=== PATIENT | female | born 1960 | race Caucasian/White ===

== ENCOUNTER 2023-03-07 20:45 | Emergency (ER) | payer OTHER ==
[2023-03-07] MEDS ORDERED: Ipratropium/Albuterol 3 ML NEB ONE (21:19)
[2023-03-07] MEDS ORDERED: Azithromycin 500 MG VIAL ONE (21:23)
[2023-03-07] MEDS ORDERED: cefTRIAXone (ROCEPHIN) 2 GM VIAL ONE (21:23)
[2023-03-07] MEDS ORDERED: Magnesium 2 GM/50 ML BAG (IN WATER) ONE (21:23)
[2023-03-07] MEDS ORDERED: methylPREDNISolone Sod Succ/PF 125 MG/2 ML VIAL ONE (21:23)
[2023-03-07 22:15] LABS: Base Excess (BEa) 1.1 mEq/L (-2.0 to +3.0); CO2 Tension 42.8 mmHg (35.0-45.0); Calcium, Ionized (arterial) 1.07 mmol/L (1.12-1.30); Carboxyhemoglobin (COHb) 7.7 gm% (0.0-3.0); Hematocrit-ABG 29 % (36.0-47.0); Hemoglobin (Hb) 9.8 g/dL (12.0-16.0); O2 Tension (PaO2), arterial 86.2 mmHg (> 80.0); Potassium - ABG Lab 3.95 mmol/L (3.70-5.30); Puncture Site LRA; RapidComm Collect By CP.BR1; pH, Arterial 7.402 (7.35-7.45)
[2023-03-07 23:02] LABS: #Basophils 0.1 10x3/uL (0.0-0.2); #Eosinphils 0.1 10x3/uL (0.0-0.5); #Monocytes 0.6 10x3/uL (0.0-1.1); #Neutrophils 4.6 10x3/uL (1.5-8.4); %Basophils 0.7 % (0.0-2.0); %Eosinophils 0.9 % (0.0-6.0); %Lymphocytes 21.9 % (18.0-47.0); %Monocytes 8.4 % (0.0-10.0); Hematocrit 28.5 % (34.9-44.5); Hemoglobin 9.1 g/dL (12.0-15.5); Mean Corpuscular HGB CONC 31.9 g/dL (32.0-36.0); Mean Corpuscular Hemoglobin 30.6 pg (27.0-33.0); Mean Platelet Volume 10.5 fl (7.4-10.4); Platelet Count 203 10x3/uL (150-450); RBC Distribution Width 14.6 % (11.5-14.5); Red Blood Cell (RBC) Count 2.97 10x6/uL (3.90-5.03); White Blood Cell (WBC) Count 6.8 10x3/uL (3.5-10.5)
[2023-03-07 23:13] LABS: ALT (SGPT) 18 U/L (8-55); AST (SGOT) 29 U/L (5-34); Albumin 3.2 g/dL (3.4-4.8); Alkaline Phosphatase 74 U/L (40-110); Anion Gap 16 mmol/L (10-20); BUN (Urea Nitrogen) 39 mg/dL (9.8-20.1); Bilirubin, Total 0.2 mg/dL (0.2-1.2); Calc. Creatinine Clearance 0 mL/min (70-130); Calcium 7.9 mg/dL (7.8-10.44); Carbon Dioxide 24 mmol/L (23-31); Chloride 103 mmol/L (98-107); Estimated GFR 13; Globulin 2.9 g/dL (2.4-3.5); Glucose 337 mg/dL (80-115); Protein, Total 6.1 g/dL (5.8-8.1); Sodium 139 mmol/L (136-145)
[2023-03-07 23:19] LABS: Troponin I 0.153 ng/mL (< 0.028)
[2023-03-07] MEDS ORDERED: Aspirin 325 MG TAB ONE (23:37)
== END 2023-03-08 03:35 | disposition short-term general hospital (02) ==
LOC: CSHERS 20:45
DX: J44.1 Chronic obstructive pulmonary disease with (acute) exacerbation (principal); R79.89 Other specified abnormal findings of blood chemistry; J18.9 Pneumonia, unspecified organism; I13.2 Hypertensive heart and chronic kidney disease with heart failure and with stage 5 chronic kidney disease, or end stage renal disease; N18.6 End stage renal disease; I50.9 Heart failure, unspecified; E11.22 Type 2 diabetes mellitus with diabetic chronic kidney disease; F17.210 Nicotine dependence, cigarettes, uncomplicated; Z99.2 Dependence on renal dialysis
CPT/HCPCS: 36415; 36600; 71045; 80053; 82805; 83605; 83880; 84484; 85025; 87040; 93005; 94640; 94660; 94760; 96365; 96367; 96368; 96375; J0456; J0696; J2930; J3475; J7620